=== PATIENT | female | born 1940 | race Caucasian/White ===

== ENCOUNTER 2017-03-03 10:04 | Inpatient (IN) | payer MEDICARE, MEDICAID ==
[2017-03-03 10:05] VITALS: BMI 22.2
--- NOTE | 2017-03-03 10:13 | ED PDOC ---
HPI: Altered Mental Status Time Seen by Provider: 03/03/17 10:08 Chief Complaint (Provider): altered mental status History Per: EMS History/Exam Limitations: Clinical Condition Onset Of Symptoms: Cannot Confirm Onset Current Symptoms Are (Timing): Still Present Additional Complaint(s): 77yo female w/ Hx CVA & known left side deficit, dementia, is brought from [facility] via EMS for change in mental status. Patient last known well >10 hours ago. EMS states RN who saw the patient at 0830 today told them patient was in her present state since change of shift. Accuchek in the field was 92. Past Medical History Reviewed: Historical Data, Nursing Documentation, Vital Signs Vital Signs: Last Vital Signs Temp 97.0 F L 03/03/17 10:07 Pulse 64 03/03/17 10:07 Resp 16 03/03/17 10:07 BP 200/100 H 03/03/17 10:07 Pulse Ox 99 03/03/17 10:07 - Medical History PMH: Alzheimer's Disease, Anemia, Anxiety, CAD, CVA (w/ left side deficit), Dementia, Depression, HTN, Osteoporosis, Pneumonia, Chronic Pain Denies: Arthritis, Asthma, CHF, COPD, Diabetes, Hepatitis, HIV, Hypercholesterolemia, Hypothyroidism, Chronic Kidney Disease, Rheumatoid Arthritis, Seizures, Sexually Transmitted Disease, TIA - Surgical History Surgical History: Appendectomy, Cholecystectomy Denies: Pacemaker - Family History Family History: States: Unknown Family Hx - Living Arrangements Living Arrangements: [facility] ([facility]) - Home Medications Home Medications: Ambulatory Orders Medication Instructions Recorded Acetaminophen [Tylenol 325mg tab] 650 mg PO Q4H PRN 03/25/16 Acetaminophen [Tylenol] 650 mg PO Q4H PRN 03/25/16 Bisacodyl [Fast Relief Laxative] 10 mg PA DAILY PRN 03/25/16 Magnesium Hydroxide [Milk Of 30 ml PO HS PRN 03/25/16 Magnesia] [place]urdland-3 Acid Ethyl Esters [Lovaza] 1 gm PO BID 03/25/16 Donepezil [Aricept] 5 mg PO HS 07/16/16 Ferrous Sulfate [Feosol] 325 mg PO DAILY 07/16/16 Aspirin [Aspirin Chewable] 81 mg PO DAILY 03/03/17 DiphenhydrAMINE [Benadryl] 25 mg PO Q6H PRN 03/03/17 Escitalopram [Lexapro] 2.5 mg PO DAILY 03/03/17 Ibuprofen [Motrin Tab] 400 mg PO Q6H PRN 03/03/17 Lactulose [Generlac] 30 ml PO BID 03/03/17 Metoprolol Tartrate [Lopressor] 25 mg PO DAILY 03/03/17 Pantoprazole Sodium [Protonix] 40 mg PO DAILY 03/03/17 levETIRAcetam [Keppra] 500 mg PO BID 03/03/17 - Allergies Allergies/Adverse Reactions: Allergies Allergy/AdvReac Type Severity Reaction Status Date / Time Cephalosporins Allergy Mild SWELLING Verified 07/16/16 13:15 Penicillins Allergy Mild SWELLING Verified 07/16/16 13:15 iodine Allergy SWELLING Verified 07/16/16 13:15 propoxyphene HCl Allergy SWELLING Verified 07/16/16 13:15 [From [facility]] Review of Systems Review Of Systems: ROS cannot be obtained secondary to pt's inabilty to answer questions. Neurological: Positive for: Altered Mental Status Physical Exam - Reviewed Nursing Documentation Reviewed: Yes Vital Signs Reviewed: Yes - Physical Exam Appears: Positive for: Non-toxic, No Acute Distress Head Exam: Positive for: ATRAUMATIC, NORMAL INSPECTION, NORMOCEPHALIC Skin: Positive for: Normal Color Eye Exam: Positive for: PERRL (3mm bilaterally) Cardiovascular/Chest: Positive for: Regular Rate, Rhythm. Negative for: Murmur Respiratory: Positive for: Crackles (scattered crackles at bilateral bases). Negative for: Wheezing, Respiratory Distress Gastrointestinal/Abdominal: Positive for: Soft. Negative for: Tenderness, Distended Extremity: Negative for: Calf Tenderness, Swelling Neurologic/Psych: Positive for: Other (obtunded, responsive to pain, withdraws to noxious stimulus. Normal babinski bilaterally. ) - Laboratory Results Result Diagrams: 03/03/17 10:39 03/03/17 10:39 - ECG ECG: Positive for: Interpreted By Me, Viewed By Me ECG Rhythm: Positive for: Sinus Rhythm Interpretation Of ECG: Normal axis. Rate: 73 O2 Sat by Pulse Oximetry: 99 (RA) Pulse Ox Interpretation: Normal Medical Decision Making Medical Decision Makin: Impression sepsis workup initiated. plan: -accuchek -CT Head w/o -CXR -EKG -vbg shock panel -labs -IV Fluids -reassess 1017 Blood pressure is 225/102. 12.00 patient's blood pressure is better. labs only for mildly elevated sodium. imaging studies negative. Case d/w PMD. Admit/ Disposition - Clinical Impression Clinical Impression: Altered mental state, Hypernatremia - Patient ED Disposition Is Patient to be Admitted: Yes Doctor Will See Patient In The: Hospital Counseled Patient/Family Regarding: Diagnosis, Need For Followup - Disposition Disposition: Transfer of Care Disposition Time: 12:06 Condition: GUARDED - POA Present On Arrival: None Additional Comments - Additional Comments Additional Comments: Scribe Attestation: Documented by Joey Denson acting as a scribe for Paula Banks MD. Provider Scribe Attestation: All medical record entries made by the Scribe were at my direction and personally dictated by me. I have reviewed the chart and agree that the record accurately reflects my personal performance of the history, physical exam, medical decision making, and the department course for this patient. I have also personally directed, reviewed, and agree with the discharge instructions and disposition.
[2017-03-03] MEDS ORDERED: Nitroglycerin 2% 15 INCH/30 GM TUBE TOP STA (10:33)
[2017-03-03] MEDS: Sodium Chloride 0.45% 1,000 ML IV SCH ×2 (11:06→20:00)
[2017-03-03 11:07] LABS: ALKALINE PHOSPHATASE 213 U/L (38-126); ALT/SGPT 27 U/L (9-52); AST/SGOT 66 U/L (14-36); BLOOD UREA NITROGEN 13 mg/dl (7-17); CALCIUM 8.8 mg/dL (8.4-10.2); CARBON DIOXIDE 21 mmol/L (22-30); CHLORIDE 115 mmol/L (98-107); GFR AFRICAN-AMERICAN > 60; GLUCOSE,RANDOM 97 mg/dL (65-105); SODIUM 148 mmol/l (132-148); TOTAL PROTEIN 7.3 G/DL (6.3-8.2)
[2017-03-03 11:15] LABS: BASO # 0.1 K/uL (0.0-0.2); BASO % 1.2 % (0.0-2.0); EOS # 0.4 K/uL (0.0-0.7); EOS % 9.6 % (0.0-4.0); MEAN CELL VOLUME 96.4 fl (81.0-99.0); MEAN CORPUSCULAR HEMOGLOBIN 32.8 pg (27.0-31.0); MEAN PLATELET VOLUME 9.4 fl (7.2-11.7); MONO # 0.4 K/uL (0.0-0.8); MONO % 10.4 % (0.0-10.0); NEUT # 1.3 K/uL (1.8-7.0); NEUT % 31.8 % (50.0-75.0); NRBC % 0.4 % (0.0-0.0); WHITE BLOOD COUNT 4.2 K/uL (4.8-10.8)
[2017-03-03 11:23] LABS: ALB/GLOB RATIO 0.7 (1.0-2.1)
[2017-03-03 11:24] LABS: POTASSIUM 4.7 MMOL/L (3.6-5.0)
--- NOTE | 2017-03-03 11:27 | CT ---
PROCEDURE: CT HEAD WITHOUT CONTRAST. HISTORY: lethargic at [place] COMPARISON: 07/18/2016 TECHNIQUE: Axial computed tomography images were obtained through the head/brain without intravenous contrast. Radiation dose: Total exam DLP = 1964.96 mGy-cm. This CT exam was performed using one or more of the following dose reduction techniques: Automated exposure control, adjustment of the mA and/or kV according to patient size, and/or use of iterative reconstruction technique. FINDINGS: HEMORRHAGE: No intracranial hemorrhage. BRAIN: No intracranial mass. Old focal left occipital encephalomalacia. No evidence of acute infarct. Patchy and confluent lucency in the periventricular and deep white matter consistent with microvascular ischemic change. Mild diffuse age-appropriate cerebral atrophy. VENTRICLES: Unremarkable. No hydrocephalus. CALVARIUM: Unremarkable. PARANASAL SINUSES: Unremarkable as visualized. No significant inflammatory changes. MASTOID AIR CELLS: Unremarkable as visualized. No inflammatory changes. OTHER FINDINGS: Examination limited due to patient motion artifact. IMPRESSION: No intracranial mass, hemorrhage or evidence of acute infarct. Examination limited due to patient motion. Chronic microvascular white matter ischemic change. Old focal left occipital encephalomalacia.
--- NOTE | 2017-03-03 11:58 | RAD ---
PROCEDURE: CHEST RADIOGRAPH, 1 VIEW HISTORY: lethargic at [place] COMPARISON: 12/18/2016 FINDINGS: LUNGS: Evaluation limited due to oblique positioning. PLEURA: No infiltrate identified. Small left pleural effusion versus chronic pleural thickening. . No evidence of right pleural effusion. CARDIOVASCULAR: Normal. OSSEOUS STRUCTURES: No significant abnormalities. VISUALIZED UPPER ABDOMEN: Normal. OTHER FINDINGS: None. IMPRESSION: Limited examination. No infiltrate. Possible small left pleural effusion.
[2017-03-03 12:02] LABS: URINE BILIRUBIN NEGATIVE (NEGATIVE); URINE COLOR LIGHT YELLOW (YELLOW); URINE GLUCOSE (UA) NEGATIVE (Normal)
[2017-03-03 12:03] LABS: PH,URINE 7.5 (5.0-8.0); RBC URINE 3 /hpf (0-3); URINE BACTERIA MOD (<OCC); URINE BLOOD NEGATIVE (NEGATIVE); URINE KETONE NEGATIVE (NEGATIVE); URINE LEUKOCYTE ESTERASE SMALL Leu/uL (Negative); URINE PROTEIN NEGATIVE (NEGATIVE); WBC URINE 10 /hpf (0-5)
[2017-03-03 14:27] LABS: PARTIAL THROMBOPLASTIN TIME 27.8 SECONDS (23.3-32.5)
[2017-03-03] MEDS ORDERED: EnalaprilAT 1.25 mg/ml Inj ONE (15:07)
[2017-03-03] MEDS ORDERED: Enalaprilat 2.5 MG/2 ML IVP STA (15:11)
[2017-03-03] MEDS ORDERED: EnalaprilAT 1.25 mg/ml Inj IVP STA (15:11)
[2017-03-03] MEDS ORDERED: Magnesium Hydroxide Susp 30 ml UD PO PRN (18:06)
[2017-03-04] MEDS: Sodium Chloride 0.45% 1,000 ML IV SCH ×2 (05:33→12:25)
[2017-03-04 07:20] LABS: BLOOD UREA NITROGEN 13 mg/dl (7-17); CALCIUM 8.8 mg/dL (8.4-10.2); CARBON DIOXIDE 22 mmol/L (22-30); CHLORIDE 110 mmol/L (98-107); CHOLESTEROL 116 mg/dL (0-199); GFR AFRICAN-AMERICAN > 60; GLUCOSE,RANDOM 85 mg/dL (65-105); POTASSIUM 3.4 MMOL/L (3.6-5.0); SODIUM 145 mmol/l (132-148)
[2017-03-04] MEDS ORDERED: Potassium Chloride 40 mEq/30 ml LIQ UD PO ONE (08:00)
--- NOTE | 2017-03-04 08:01 | CP.PCM.HP ---
<PetraPriscilla ferrera - Last Filed: 03/04/17 22:18> History of Present Illness - History of Present Illness History of Present Illness: CC: Altered Mental Status from baseline Patient was admitted overnight and then seen and examined at bedside with attending. At time of evaluation patient drowsy/lethargic and unable to obtain history from patient, so records reviewed. 77F brought in by EMS from [place] for acute change in mental status over 10 hours. Glucose- 92, afebrile, no tachycardia, no tachypnea, significant hypertension, no signs of sepsis. PMH: CVA (residual LEFT hemiparesis), Anemia, Cirrhosis, CAD, Alzheimer's Dementia, HTN PSH: Appendectomy, Cholecystectomy ED COURSE 36.1- 64- 200/100- 16- 99%RA Patient worked up for sepsis CT Head: consistent chronic changes, no ICH, no masses CXR: no infiltrate, possible small LEFT effusion EKG: NSR VBG: Lactate-1.4 CBC: 4.2 > 15/44 < 97, MCV- 96.4 CMP: 148/4.7- 115/21- 13/0.5, TBili- 2.0, AST/ALT- 66/27, ALP- 213 UA: Nitrates-POS, WBC+ IVF Present on Admission - Present on Admission Any Indicators Present on Admission: No History of DVT/PE: No History of Uncontrolled Diabetes: No Review of Systems - Review of Systems Systems not reviewed;Unavailable: Dementia, Altered Mental Status Past Patient History - Infectious Disease Hx of Infectious Diseases: None - Tetanus Immunizations Tetanus Immunization: Unknown - Past Medical History & Family History Past Medical History?: Yes - Past Social History Smoking Status: Smoker Currrent Status Unknown - CARDIAC Hx Congestive Heart Failure: No Hx Hypercholesterolemia: No Hx Hypertension: Yes Hx Pacemaker: No - PULMONARY Hx Asthma: No Hx Chronic Obstructive Pulmonary Disease (COPD): No Hx Pneumonia: Yes - NEUROLOGICAL Hx Alzheimer's Disease: Yes HX Cerebrovascular Accident: Yes Hx Dementia: Yes Hx Seizures: No Hx Transient Ischemic Attacks (TIA): No - HEENT Hx HEENT Problems: No - RENAL Hx Chronic Kidney Disease: No - ENDOCRINE/METABOLIC Hx Hypothyroidism: No - HEMATOLOGICAL/ONCOLOGICAL Hx Anemia: Yes Hx Human Immunodeficiency Virus (HIV): No - INTEGUMENTARY Hx Dermatological Problems: No - MUSCULOSKELETAL/RHEUMATOLOGICAL Hx Arthritis: No Hx Falls: No Hx Osteoporosis: Yes Hx Rheumatoid Arthritis: No - GASTROINTESTINAL Hx Gastrointestinal Disorders: Yes Hx Constipation: Yes Hx Gastroesophageal Reflux: Yes - GENITOURINARY/GYNECOLOGICAL Hx Sexually Transmitted Disorders: No - PSYCHIATRIC Hx Anxiety: Yes Hx Depression: Yes Hx Substance Use: No - SURGICAL HISTORY Hx Appendectomy: Yes Hx Cholecystectomy: Yes - ANESTHESIA Hx Anesthesia: Yes Hx Anesthesia Reactions: No Hx Malignant Hyperthermia: No Meds Allergies/Adverse Reactions: Allergies Allergy/AdvReac Type Severity Reaction Status Date / Time Cephalosporins Allergy Mild SWELLING Verified 07/16/16 13:15 Penicillins Allergy Mild SWELLING Verified 07/16/16 13:15 iodine Allergy SWELLING Verified 07/16/16 13:15 propoxyphene HCl Allergy SWELLING Verified 07/16/16 13:15 [From [facility]] Physical Exam - Constitutional Appears: Non-toxic, Chronically Ill - Head Exam Head Exam: ATRAUMATIC, NORMAL INSPECTION - Eye Exam Eye Exam: Normal appearance, PERRL - ENT Exam ENT Exam: Mucous Membranes Dry - Neck Exam Neck exam: Positive for: Normal Inspection. Negative for: Lymphadenopathy - Respiratory Exam Respiratory Exam: Clear to Auscultation Bilateral, NORMAL BREATHING PATTERN. absent: Rales, Wheezes - Cardiovascular Exam Cardiovascular Exam: REGULAR RHYTHM. absent: JVD - GI/Abdominal Exam GI & Abdominal Exam: Normal Bowel Sounds, Soft. absent: Tenderness - Extremities Exam Extremities exam: Positive for: normal capillary refill, pedal pulses present. Negative for: pedal edema Additional comments: LEFT Hemiparesis at baseline - Neurological Exam Neurological exam: Altered (Drowsy on initial exam, but alert later in the day) Additional comments: Patient has LEFT hemiparesis and speech aphasia? - Skin Skin Exam: Dry, Warm Results - Vital Signs Recent Vital Signs: Last Vital Signs Temp 36.5 C 03/04/17 05:15 Pulse 85 03/04/17 05:15 Resp 18 03/04/17 05:15 BP 171/75 H 03/04/17 05:15 Pulse Ox 97 03/04/17 05:15 - Labs Result Diagrams: 03/04/17 04:50 03/04/17 04:50 Labs: Laboratory Results - last 24 hr 03/03/17 03/04/17 14:19 04:50 PT 12.5 H INR 1.20 H APTT 27.8 Sodium 145 Potassium 3.4 L Chloride 110 H Carbon Dioxide 22 Anion Gap 16 BUN 13 Creatinine 0.5 L Est GFR ( Amer) > 60 Est GFR (Non-Af Amer) > 60 Random Glucose 85 Calcium 8.8 Triglycerides 60 Cholesterol 116 LDL Cholesterol Direct 54 HDL Cholesterol 35 Assessment & Plan (2) Altered mental state Assessment and Plan: 77F with baseline dementia and with volume resuscitation alone has become quite alert and responsive to baseline. Laboratory values have remained stable ( refer to discussion in cirrhosis for thrombocytopenia below), "possible small LEFT pleural effusion" unlikely a sign of infection, no ICH/masses on CT scan noted, UA is positive for nitrates but many epithelial cells in specimen, no leukocytosis, no lactic acidosis, no TEGAN. Given positive response to IV fluids alone would suspect potential medication interaction vs. metabolic abnormality such as ammonia, although cannot rule out infectious etiology (Positive BCx does not fit with overall clinical picture, will treat as accurate for patient safety but suspect possible contamination). Does not meet criteria for sepsis at this time. - Neurology Consult (Dr Serrato) appreciated: MRI, PT/OT/ST - ID Consult (Dr Jeter) appreciated: Vancomycin for positive BCx - Procalcitonin - Repeat BCx - Repeat CBC - Empirically treated with Macrobid (last UTI was sensitive) - HOLD Benadryl Status: Acute (3) DVT prophylaxis Assessment and Plan: Reviewing current literature on DVT prophylaxis in cirrhotics seem to hinge on presence or absence of esophageal varices for which we have no information. Otherwise no specific guidelines are provided, but suggest a platelet count of 50,000 is the threshold beyond which it is not recommended (Adry T, Seven A, R , Ruben J, Oniel S, Eliu C, Serge M, The Complex Role of Anticoagulation in Cirrhosis: An Updated Review of Where We Are and Where We Are Going. Digestion 2016;93:149-159). Platelet count- 77K - Lovenox 40mg, SC, Daily - SCDs b/l lower extremities, continuous Status: Acute (4) CVA (cerebral vascular accident) Assessment and Plan: Acute on chronic possibility with patient having baseline LEFT hemiparesis and speech ?aphasia combined with alzheimer's challenging to discriminate more subtle changes. - Neurology Consult (Dr Serrato) appreciated: MRI, PT/OT/ST - MRI - Aspirin 81mg, PO, Daily - Keppra 500mg, PO, BID Status: Acute (5) Alzheimer's dementia Assessment and Plan: Stable, as per family at bedside patient at baseline. - c/w Aricept 5mg, PO, HS - Lexapro 2.5mg, PO, Daily Status: Chronic (6) Hypertension Assessment and Plan: On presentation not controlled and in hypertensive urgency, but since has stabilized although lower than recommended if we suspect this is conjunction with an cerebral ischemic event. - Lopressor Tartrate 25mg, PO, Daily - Monitor BP Status: Chronic (7) Cirrhosis of liver Assessment and Plan: Prior workup for thrombocytopenia by Dr Tabares indicates thrombocytopenia and coagulopathy secondary to liver cirrhosis. Admission MELD-Ar: 11 - Check Ammonia levels - Repeat CMP - Lactulose 20gm, PO, BID Status: Acute <Alfonso Brar - Last Filed: 03/11/17 17:54> Results - Vital Signs Recent Vital Signs: Last Vital Signs Temp 97.6 F 03/09/17 16:00 Pulse 64 03/09/17 16:00 Resp 20 03/09/17 16:00 BP 108/58 L 03/09/17 16:00 Pulse Ox 99 03/09/17 16:00 - Labs Result Diagrams: 03/08/17 05:50 03/08/17 05:50
--- NOTE | 2017-03-04 08:28 | CARD ---
APPROVED REPORT EKG Measurement Heart [id number] <Conclusion> Normal sinus rhythm Normal ECG
[2017-03-04 08:48] LABS: ABG ALLEN TEST YES; ARTERIAL BLOOD GAS HCO3 24.7 mmol/L (21-28); ARTERIAL BLOOD GAS PH 7.46 (7.35-7.45); ARTERIAL BLOOD GAS PO2 105 mm/Hg (80-100)
[2017-03-04 09:02] LABS: HEMATOCRIT 41.8 % (34.0-47.0); MEAN CELL VOLUME 97.6 fl (81.0-99.0); MEAN CORPUSCULAR HEMOGLOBIN 32.5 pg (27.0-31.0); MEAN CORPUSCULAR HGB CONC 33.3 g/dL (33.0-37.0); WHITE BLOOD COUNT 5.2 K/uL (4.8-10.8)
[2017-03-04] MEDS ORDERED: Potassium Chloride 20 mEq/15 ml LIQ UD PO ONE (09:15)
[2017-03-04] MEDS: Pantoprazole 40 mg EC Tab PO SCH (10:14)
[2017-03-04] MEDS: Enoxaparin 40 mg Syringe SC SCH (10:15)
[2017-03-04] MEDS: Omega-3-Acid Ethyl Esters 1 GM Cap PO SCH ×2 (10:16→17:39)
[2017-03-04] MEDS: Ciprofloxacin 400mg/200ml D5W 400 MG/200 ML BAG IVPB SCH ×2 (12:24→21:59)
--- NOTE | 2017-03-04 18:45 | CP.PCM.CON ---
History of Present Illness - History of Present Illness History of Present Illness: ADMITTED FOR POSSIBLE SEPSIS BLOOD C/S POSITIVE VANCO ADDED 77F brought in by EMS from [place] for acute change in mental status over 10 hours. Glucose- 92, afebrile, no tachycardia, no tachypnea, significant hypertension, no signs of sepsis. PMH: CVA (residual LEFT hemiparesis), Anemia, Cirrhosis, CAD, Alzheimer's Dementia, HTN PSH: Appendectomy, Cholecystectomy Review of Systems - Review of Systems Systems not reviewed;Unavailable: Altered Mental Status - Constitutional Constitutional: absent: As Per HPI, Anorexia, Chills, Daytime Sleepiness, Excessive Sweating, Fatigue, Fever, Frequent Falls, Headache, Increased Appetite , Lethargy, Malaise, Night Sweats, Snoring, Sleep Apnea, Weight Gain, Weight Loss, Weakness, Other - EENT Eyes: absent: As Per HPI, Blind Spots, Blurred Vision, Change in Vision, Decreased Night Vision, Diplopia, Discharge, Dry Eye, Exophthalmos, Floaters, Irritation, Itchy Eyes, Loss of Peripheral Vision, Pain, Photophobia, Requires Corrective Lenses, Sees Flashes, Spots in Vision, Tunnel Vision, Other Visual Disturbances, Loss of Vision, Other Ears: absent: As Per HPI, Decreased Hearing, Ear Discharge, Ear Pain, Tinnitus, Abnormal Hearing, Disequilibrium, Dizziness, Other Nose/Mouth/Throat: absent: As Per HPI, Epistaxis, Nasal Congestion, Nasal Discharge, Nasal Obstruction, Nasal Trauma, Nose Pain, Post Nasal Drip, Sinus Pain, Sinus Pressure, Bleeding Gums, Change in Voice, Dental Pain, Dry Mouth, Dysphagia, Halitosis, Hoarsness, Lip Swelling, Mouth Lesions, Mouth Pain, Odynophagia, Sore Throat, Throat Swelling, Tongue Swelling, Facial Pain, Neck Pain, Neck Mass, Other - Breasts Breasts: absent: As Per HPI, Change in Shape, Mass, Pain, Nipple Discharge, Nipple Inversion, Skin Changes, Swelling, Other - Cardiovascular Cardiovascular: absent: As Per HPI, Acrocyanosis, Chest Pain, Chest Pain at Rest , Chest Pain with Activity, Claudication, Diaphoresis, Dyspnea, Dyspnea on Exertion, Edema, Irregular Heart Rhythm, Pain Radiating to Arm/Neck/Jaw, Leg Edema, Leg Ulcers, Lightheadedness, Orthopnea, Palpitations, Paroxysmal Nocturnal Dyspnea, Pedal Edema, Radiating Pain, Rapid Heart Rate, Slow Heart Rate, Syncope, Other - Respiratory Respiratory: absent: As Per HPI, Cough, Dyspnea, Hemoptysis, Dyspnea on Exertion , Wheezing, Snoring, Stridor, Pain on Inspiration, Chest Congestion, Excessive Mucous Production, Change in Mucous Color, Pain with Coughing, Other - Gastrointestinal Gastrointestinal: absent: As Per HPI, Abdominal Pain, Belching, Bloating, Change in Bowel Habits, Change in Stool Character, Coffee Ground Emesis, Constipation, Cramping, Diarrhea, Dyspepsia, Dysphagia, Early Satiety, Excessive Flatus, Fecal Incontinence, Heartburn, Hematemesis, Hematochezia, Loose Stools, Melena, Nausea, Odynophagia, Temesmus, Vomiting, Other - Genitourinary Genitourinary: absent: As Per HPI, Change in Urinary Stream, Difficulty Urinating, Dysuria, Flank Pain, Hematuria, Pyuria, Nocturia, Urinary Incontinence, Urinary Frequency, Urinary Hesitance, Urinary Urgency, Voiding Freq/Small Amts, Freq UTI, Hx Renal/Bladder Calculi, Hx /Renal Surgery, Bladder Distension, Other - Reproductive: Female Reproductive:Female: absent: As Per HPI, Amenorrhea, Amenorrhea/ Control, Currently Menstual, Cycle <21 Days, Cycle >35 Days, Cycle Variable, Menses 1-7 Days, Menses >/= 8 Days, Menses Variable, Cycle > 4 Weeks Between, No Menses for 6 Months, Heavy Menses, Light Menses, Normal Menses, Spotting Between Cycles , S/P Hysterectomy, Menopausal, Post Menopausal, Premenarche, Abnormal Vaginal Bleeding, Dysmenorrhea, Dyspareunia, Genital Lesions, Genital Pruritis, Pelvic Pain, Prolapse Symptoms, Sexual Dysfunction, Vaginal Discharge, Vaginal Dryness , Vaginal Odor, Vaginal Pruritis, Other - Menstruation Menstruation: absent: As Per HPI, Amenorrhea, Amenorrhea/ Control, Currently Menstual, Cycle <21 Days, Cycle >35 Days, Cycle Variable, Menses 1-7 Days, Menses >/= 8 Days, Menses Variable, Cycle > 4 Weeks Between, No Menses for 6 Months, Heavy Menses, Light Menses, Normal Menses, Spotting Between Cycles , S/P Hysterectomy, Menopausal, Post Menopausal, Premenarche, Abnormal Vaginal Bleeding, Dysmenorrhea, Other - Musculoskeletal Musculoskeletal: absent: As Per HPI, Abnormal Gait, Arthralgias, Atrophy, Back Pain, Deformity, Joint Swelling, Limited Range of Motion, Loss of Height, Muscle Cramps, Muscle Weakness, Myalgias, Neck Pain, Numbness, Radiating Pain into Limb, Stiffness, Tingling, Other - Integumentary Integumentary: absent: As Per HPI, Acne, Alopecia, Bleeding Lesions, Change in Hair, Change in Nails, Change in Pigmentation, Changing Lesions, Dry Skin, Erythema, Furuncle, Hirsutism, Lesions, New Lesions, Non-Healing Lesions, Photosensitivity, Pruritus, Rash, Skin Pain, Skin Ulcer, Sores, Striae, Swelling , Unusual Bruising, Wounds, Jaundice, Other - Neurological Neurological: absent: As Per HPI, Abnormal Gait, Abnormal Hearing, Abnormal Movements, Abnormal Speech, Behavioral Changes, Burning Sensations, Confusion, Convulsions, Disequilibrium, Dizziness, Numbness, Focal Weakness, Frequent Falls , Headaches, Lack of Coordination, Loss of Vision, Memory Loss, Paresthesias, Radicular Pain, Restless Legs, Sensory Deficit, Syncope, Tingling, Tremor, Vertigo, Weakness, Other Visual Disturbances, Other - Psychiatric Psychiatric: absent: As Per HPI, Abnormal Sleep Pattern, Anhedonia, Anxiety, Auditory Hallucinations, Behavioral Changes, Change in Appetite, Change in Libido, Confusion, Depression, Difficulty Concentrating, Hallucinations, Homicidal Ideation, Hopelessness, Irritability, Memory Loss, Mood Swings, Panic Attacks, Paranoia, Suicidal Ideation, Visual Hallucinations, Tactile Hallucinations, Other - Endocrine Endocrine: absent: As Per HPI, Change in Body Appearance, Change in Libido, Cold Intolorance, Deepening of Voice, Excessive Sweating, Fatigue, Flushing, Heat Intolorance, Increase in Ring/Shoe/Hat Size, Palpitations, Polydipsia, Polyphagia, Polyuria, Other - Hematologic/Lymphatic Hematologic: absent: As Per HPI, Easy Bleeding, Easy Bruising, Lymphadenopathy, Other Past Patient History - Infectious Disease Hx of Infectious Diseases: None - Tetanus Immunizations Tetanus Immunization: Unknown - Past Medical History & Family History Past Medical History?: Yes - Past Social History Smoking Status: Smoker Currrent Status Unknown - CARDIAC Hx Congestive Heart Failure: No Hx Hypercholesterolemia: No Hx Hypertension: Yes Hx Pacemaker: No - PULMONARY Hx Asthma: No Hx Chronic Obstructive Pulmonary Disease (COPD): No Hx Pneumonia: Yes - NEUROLOGICAL Hx Alzheimer's Disease: Yes HX Cerebrovascular Accident: Yes Hx Dementia: Yes Hx Seizures: No Hx Transient Ischemic Attacks (TIA): No - HEENT Hx HEENT Problems: No - RENAL Hx Chronic Kidney Disease: No - ENDOCRINE/METABOLIC Hx Hypothyroidism: No - HEMATOLOGICAL/ONCOLOGICAL Hx Anemia: Yes Hx Human Immunodeficiency Virus (HIV): No - INTEGUMENTARY Hx Dermatological Problems: No - MUSCULOSKELETAL/RHEUMATOLOGICAL Hx Arthritis: No Hx Falls: No Hx Osteoporosis: Yes Hx Rheumatoid Arthritis: No - GASTROINTESTINAL Hx Gastrointestinal Disorders: Yes Hx Constipation: Yes Hx Gastroesophageal Reflux: Yes - GENITOURINARY/GYNECOLOGICAL Hx Sexually Transmitted Disorders: No - PSYCHIATRIC Hx Anxiety: Yes Hx Depression: Yes Hx Substance Use: No - SURGICAL HISTORY Hx Appendectomy: Yes Hx Cholecystectomy: Yes - ANESTHESIA Hx Anesthesia: Yes Hx Anesthesia Reactions: No Hx Malignant Hyperthermia: No Meds Allergies/Adverse Reactions: Allergies Allergy/AdvReac Type Severity Reaction Status Date / Time Cephalosporins Allergy Mild SWELLING Verified 07/16/16 13:15 Penicillins Allergy Mild SWELLING Verified 07/16/16 13:15 iodine Allergy SWELLING Verified 07/16/16 13:15 propoxyphene HCl Allergy SWELLING Verified 07/16/16 13:15 [From Darvon] - Medications Medications: Current Medications Acetaminophen (Tylenol 325mg Tab) 650 mg PO Q4H PRN PRN Reason: Pain, Mild (1-3) Acetaminophen (Tylenol 325mg Tab) 650 mg PO Q4H PRN PRN Reason: Temp/fever Aspirin (Aspirin Chewable) 81 mg PO DAILY [facility] Last Admin: 03/04/17 10:13 Dose: 81 mg Bisacodyl (Dulcolax) 10 mg [place] DAILY PRN PRN Reason: Constipation Diphenhydramine HCl (Benadryl) 25 mg PO Q6H PRN PRN Reason: Itching / Pruritus Donepezil HCl (Aricept) 5 mg PO HS [facility] Last Admin: 03/03/17 22:12 Dose: 5 mg Enoxaparin Sodium (Lovenox) 40 mg SC DAILY [facility] PRN Reason: Protocol Last Admin: 03/04/17 10:15 Dose: 40 mg Escitalopram Oxalate (Lexapro) 2.5 mg PO DAILY [facility] Last Admin: 03/04/17 10:18 Dose: 2.5 mg Ferrous Sulfate (Feosol) 325 mg PO DAILY [facility] Last Admin: 03/04/17 10:14 Dose: 325 mg Sodium Chloride (Sodium Chloride 0.45%) 1,000 mls @ 125 mls/hr IV .Q8H [facility] Last Admin: 03/04/17 12:25 Dose: Not Given Ciprofloxacin (Cipro 400mg/200ml Dsw) 400 mg in 200 mls @ 200 mls/hr IVPB Q12 [facility] Last Admin: 03/04/17 12:24 Dose: Not Given Vancomycin HCl 1,000 mg/ (Sodium Chloride) 250 mls @ 250 mls/hr IVPB Q12H [facility] Ibuprofen (Motrin Tab) 400 mg PO Q6H PRN PRN Reason: Pain, moderate (4-7) Lactulose (Enulose) 20 gm PO BID [facility] Last Admin: 03/04/17 17:39 Dose: 20 gm Levetiracetam (Keppra) 500 mg PO BID [facility] Last Admin: 03/04/17 17:40 Dose: 500 mg Magnesium Hydroxide (Milk Of Magnesia) 30 ml PO HS PRN PRN Reason: Constipation Metoprolol Tartrate (Lopressor) 25 mg PO DAILY [facility] Last Admin: 03/04/17 10:17 Dose: 25 mg Nitrofurantoin Macrocrystals (Macrobid) 100 mg PO Q12 [facility] Last Admin: 03/04/17 14:52 Dose: 100 mg Wlarg-1-Izao Ethyl Esters (Lovaza) 1 gm PO BID [facility] Last Admin: 03/04/17 17:39 Dose: 1 gm Pantoprazole Sodium (Protonix Ec Tab) 40 mg PO DAILY [facility] Last Admin: 03/04/17 10:14 Dose: 40 mg Physical Exam - Constitutional Appears: Non-toxic, Cachectic, Chronically Ill - Head Exam Head Exam: ATRAUMATIC, NORMAL INSPECTION, NORMOCEPHALIC - Eye Exam Eye Exam: EOMI, PERRL. absent: Scleral icterus - ENT Exam ENT Exam: Mucous Membranes Dry, Normal External Ear Exam - Neck Exam Neck exam: Negative for: Lymphadenopathy, Thyromegaly - Respiratory Exam Respiratory Exam: Decreased Breath Sounds, Rhonchi - Cardiovascular Exam Cardiovascular Exam: Tachycardia, REGULAR RHYTHM, +S1, +S2 - GI/Abdominal Exam GI & Abdominal Exam: Diminished Bowel Sounds, Distended, Soft. absent: Organomegaly, Pulsatile Mass, Rebound, Rigid, Tenderness - Rectal Exam Rectal Exam: Deferred - Exam Exam: NORMAL INSPECTION - Extremities Exam Extremities exam: Positive for: pedal pulses present. Negative for: calf tenderness, pedal edema, tenderness - Back Exam Back exam: absent: CVA tenderness (L), CVA tenderness (R), paraspinal tenderness - Neurological Exam Neurological exam: Alert, Altered, CN II-XII Intact - Psychiatric Exam Psychiatric exam: Depressed - Skin Skin Exam: Dry, Intact Results - Vital Signs Recent Vital Signs: Last Vital Signs Temp 98.5 F 03/04/17 16:48 Pulse 82 03/04/17 16:48 Resp 20 03/04/17 16:48 BP 133/73 03/04/17 16:48 Pulse Ox 98 03/04/17 16:48 - Labs Result Diagrams: 03/05/17 05:30 03/05/17 05:30 Labs: Laboratory Results - last 24 hr 03/04/17 03/04/17 04:50 04:50 WBC 5.2 RBC 4.28 Hgb 13.9 Hct 41.8 MCV 97.6 MCH 32.5 H MCHC 33.3 RDW 14.0 Plt Count 77 L D Sodium 145 Potassium 3.4 L Chloride 110 H Carbon Dioxide 22 Anion Gap 16 BUN 13 Creatinine 0.5 L Est GFR ( Amer) > 60 Est GFR (Non-Af Amer) > 60 Random Glucose 85 Calcium 8.8 Triglycerides 60 Cholesterol 116 LDL Cholesterol Direct 54 HDL Cholesterol 35 Assessment & Plan (1) Bacteremia Status: Acute (2) Bacteremia Status: Acute (3) Altered mental state Status: Acute (4) Encephalopathy acute Status: Acute Priority: High (5) Hypernatremia Status: Acute (6) UTI (urinary tract infection) Status: Acute (7) Alzheimer's dementia Status: Chronic (8) Hypertension Status: Chronic - Assessment and Plan (Free Text) Assessment: gram + cocci on blood c/s contaminant? pt is toxic will cover with Oral
--- NOTE | 2017-03-04 18:49 | CP.PCM.CON ---
History of Present Illness - History of Present Illness History of Present Illness: Mrs. Hill is a 77-year-old woman with a past medical history of dementia, CVA ( residual left side weakness), HTN, CAD, who was [facility] for changes in her mental status and confusion. She is unable to provide a history and continues to say "hello" when I ask her any questions. The information was obtained form the chart. Review of Systems - Review of Systems Systems not reviewed;Unavailable: Dementia, Altered Mental Status Past Patient History - Infectious Disease Hx of Infectious Diseases: None - Tetanus Immunizations Tetanus Immunization: Unknown - Past Medical History & Family History Past Medical History?: Yes - Past Social History Smoking Status: Smoker Currrent Status Unknown - CARDIAC Hx Congestive Heart Failure: No Hx Hypercholesterolemia: No Hx Hypertension: Yes Hx Pacemaker: No - PULMONARY Hx Asthma: No Hx Chronic Obstructive Pulmonary Disease (COPD): No Hx Pneumonia: Yes - NEUROLOGICAL Hx Alzheimer's Disease: Yes HX Cerebrovascular Accident: Yes Hx Dementia: Yes Hx Seizures: No Hx Transient Ischemic Attacks (TIA): No - HEENT Hx HEENT Problems: No - RENAL Hx Chronic Kidney Disease: No - ENDOCRINE/METABOLIC Hx Hypothyroidism: No - HEMATOLOGICAL/ONCOLOGICAL Hx Anemia: Yes Hx Human Immunodeficiency Virus (HIV): No - INTEGUMENTARY Hx Dermatological Problems: No - MUSCULOSKELETAL/RHEUMATOLOGICAL Hx Arthritis: No Hx Falls: No Hx Osteoporosis: Yes Hx Rheumatoid Arthritis: No - GASTROINTESTINAL Hx Gastrointestinal Disorders: Yes Hx Constipation: Yes Hx Gastroesophageal Reflux: Yes - GENITOURINARY/GYNECOLOGICAL Hx Sexually Transmitted Disorders: No - PSYCHIATRIC Hx Anxiety: Yes Hx Depression: Yes Hx Substance Use: No - SURGICAL HISTORY Hx Appendectomy: Yes Hx Cholecystectomy: Yes - ANESTHESIA Hx Anesthesia: Yes Hx Anesthesia Reactions: No Hx Malignant Hyperthermia: No Meds Allergies/Adverse Reactions: Allergies Allergy/AdvReac Type Severity Reaction Status Date / Time Cephalosporins Allergy Mild SWELLING Verified 07/16/16 13:15 Penicillins Allergy Mild SWELLING Verified 07/16/16 13:15 iodine Allergy SWELLING Verified 07/16/16 13:15 propoxyphene HCl Allergy SWELLING Verified 07/16/16 13:15 [From Darvon] - Medications Medications: Current Medications Acetaminophen (Tylenol 325mg Tab) 650 mg PO Q4H PRN PRN Reason: Pain, Mild (1-3) Acetaminophen (Tylenol 325mg Tab) 650 mg PO Q4H PRN PRN Reason: Temp/fever Aspirin (Aspirin Chewable) 81 mg PO DAILY [facility] Last Admin: 03/04/17 10:13 Dose: 81 mg Bisacodyl (Dulcolax) 10 mg [place] DAILY PRN PRN Reason: Constipation Diphenhydramine HCl (Benadryl) 25 mg PO Q6H PRN PRN Reason: Itching / Pruritus Donepezil HCl (Aricept) 5 mg PO HS [facility] Last Admin: 03/03/17 22:12 Dose: 5 mg Enoxaparin Sodium (Lovenox) 40 mg SC DAILY [facility] PRN Reason: Protocol Last Admin: 03/04/17 10:15 Dose: 40 mg Escitalopram Oxalate (Lexapro) 2.5 mg PO DAILY [facility] Last Admin: 03/04/17 10:18 Dose: 2.5 mg Ferrous Sulfate (Feosol) 325 mg PO DAILY [facility] Last Admin: 03/04/17 10:14 Dose: 325 mg Sodium Chloride (Sodium Chloride 0.45%) 1,000 mls @ 125 mls/hr IV .Q8H [facility] Last Admin: 03/04/17 12:25 Dose: Not Given Ciprofloxacin (Cipro 400mg/200ml Dsw) 400 mg in 200 mls @ 200 mls/hr IVPB Q12 [facility] Last Admin: 03/04/17 12:24 Dose: Not Given Vancomycin HCl 1 gm/ Sodium (Chloride) 250 mls @ 250 mls/hr IVPB Q12H [facility] Ibuprofen (Motrin Tab) 400 mg PO Q6H PRN PRN Reason: Pain, moderate (4-7) Lactulose (Enulose) 20 gm PO BID [facility] Last Admin: 03/04/17 17:39 Dose: 20 gm Levetiracetam (Keppra) 500 mg PO BID [facility] Last Admin: 03/04/17 17:40 Dose: 500 mg Magnesium Hydroxide (Milk Of Magnesia) 30 ml PO HS PRN PRN Reason: Constipation Metoprolol Tartrate (Lopressor) 25 mg PO DAILY [facility] Last Admin: 03/04/17 10:17 Dose: 25 mg Nitrofurantoin Macrocrystals (Macrobid) 100 mg PO Q12 [facility] Last Admin: 03/04/17 14:52 Dose: 100 mg Xroyt-2-[id number] Ethyl Esters (Lovaza) 1 gm PO BID [facility] Last Admin: 03/04/17 17:39 Dose: 1 gm Pantoprazole Sodium (Protonix Ec Tab) 40 mg PO DAILY [facility] Last Admin: 03/04/17 10:14 Dose: 40 mg Physical Exam - Constitutional Appears: Toxic, Confused - Head Exam Head Exam: ATRAUMATIC, NORMAL INSPECTION, NORMOCEPHALIC - Eye Exam Eye Exam: EOMI, Normal appearance, PERRL - ENT Exam ENT Exam: Mucous Membranes Moist, Normal Exam - Neck Exam Neck exam: Positive for: Normal Inspection - Respiratory Exam Respiratory Exam: Clear to Auscultation Bilateral, NORMAL BREATHING PATTERN - Cardiovascular Exam Cardiovascular Exam: REGULAR RHYTHM - GI/Abdominal Exam GI & Abdominal Exam: Normal Bowel Sounds, Soft. absent: Tenderness - Neurological Exam Neurological exam: Altered, CN II-XII Intact Additional comments: left side hemiplegia, withdraws to pain on the right, upgoing plantar response on the left, does not follow commands to test strength. - Psychiatric Exam Additional comments: aphasic Results - Vital Signs Recent Vital Signs: Last Vital Signs Temp 98.5 F 03/04/17 16:48 Pulse 82 03/04/17 16:48 Resp 20 03/04/17 16:48 BP 133/73 03/04/17 16:48 Pulse Ox 98 03/04/17 16:48 - Labs Result Diagrams: 03/04/17 04:50 03/04/17 04:50 Labs: Laboratory Results - last 24 hr 03/04/17 03/04/17 04:50 04:50 WBC 5.2 RBC 4.28 Hgb 13.9 Hct 41.8 MCV 97.6 MCH 32.5 H MCHC 33.3 RDW 14.0 Plt Count 77 L D Sodium 145 Potassium 3.4 L Chloride 110 H Carbon Dioxide 22 Anion Gap 16 BUN 13 Creatinine 0.5 L Est GFR ( Amer) > 60 Est GFR (Non-Af Amer) > 60 Random Glucose 85 Calcium 8.8 Triglycerides 60 Cholesterol 116 LDL Cholesterol Direct 54 HDL Cholesterol 35 - Imaging and Cardiology CT scan - head Status: Image reviewed by me, Report reviewed by me (No acute findings. ) Assessment & Plan (1) Encephalopathy acute Assessment and Plan: Based on the history and presentation, the patient may have either suffered from a new infarct, or has toxic-metabolic encephalopathy. An MRI of the brain is recommended and continue treatment for underlying cause, hydration with NS at 100 mL/hr, DVT Px, PT/OT/ST. Platelets are low, but would continue aspirin 81 mg for stroke prevention. Status: Acute Priority: High
--- NOTE | 2017-03-05 06:51 | CP.PCM.PN ---
Subjective - Date & Time of Evaluation Date of Evaluation: 03/05/17 Time of Evaluation: 06:51 - Subjective Subjective: F/U altered mental status 77F seen and examined at bedside this morning with attending. Patient easily arouseable, is verbal but answers not related to question. Unable to further asses level of alteration in mental status, but my attending knows the patient and thinks this is within her normal range. Objective - Vital Signs/Intake and Output Vital Signs (last 24 hours): Temp Pulse Resp BP Pulse Ox 36.9 C 85 18 121/63 98 03/05/17 05:27 03/05/17 05:27 03/05/17 05:27 03/05/17 05:27 03/05/17 05:27 Intake and Output: 03/04/17 03/05/17 18:59 06:59 Intake Total 360 Output Total 340 Balance 20 - Medications Medications: Current Medications Acetaminophen (Tylenol 325mg Tab) 650 mg PO Q4H PRN PRN Reason: Pain, Mild (1-3) Acetaminophen (Tylenol 325mg Tab) 650 mg PO Q4H PRN PRN Reason: Temp/fever Aspirin (Aspirin Chewable) 81 mg PO DAILY [facility] Last Admin: 03/04/17 10:13 Dose: 81 mg Bisacodyl (Dulcolax) 10 mg [place] DAILY PRN PRN Reason: Constipation Diphenhydramine HCl (Benadryl) 25 mg PO Q6H PRN PRN Reason: Itching / Pruritus Donepezil HCl (Aricept) 5 mg PO HS [facility] Last Admin: 03/04/17 21:52 Dose: 5 mg Enoxaparin Sodium (Lovenox) 40 mg SC DAILY [facility] PRN Reason: Protocol Last Admin: 03/04/17 10:15 Dose: 40 mg Escitalopram Oxalate (Lexapro) 2.5 mg PO DAILY [facility] Last Admin: 03/04/17 10:18 Dose: 2.5 mg Ferrous Sulfate (Feosol) 325 mg PO DAILY [facility] Last Admin: 03/04/17 10:14 Dose: 325 mg Sodium Chloride (Sodium Chloride 0.45%) 1,000 mls @ 125 mls/hr IV .Q8H [facility] Last Admin: 03/04/17 12:25 Dose: Not Given Vancomycin HCl 1 gm/ Sodium (Chloride) 250 mls @ 250 mls/hr IVPB Q12H [facility] Last Admin: 03/04/17 21:58 Dose: Not Given Ibuprofen (Motrin Tab) 400 mg PO Q6H PRN PRN Reason: Pain, moderate (4-7) Lactulose (Enulose) 20 gm PO BID [facility] Last Admin: 03/04/17 17:39 Dose: 20 gm Levetiracetam (Keppra) 500 mg PO BID [facility] Last Admin: 03/04/17 17:40 Dose: 500 mg Linezolid (Zyvox) 600 mg PO Q12 [facility] Last Admin: 03/04/17 22:53 Dose: 600 mg Magnesium Hydroxide (Milk Of Magnesia) 30 ml PO HS PRN PRN Reason: Constipation Metoprolol Tartrate (Lopressor) 25 mg PO DAILY [facility] Last Admin: 03/04/17 10:17 Dose: 25 mg Nitrofurantoin Macrocrystals (Macrobid) 100 mg PO Q12 [facility] Last Admin: 03/04/17 21:53 Dose: 100 mg Zighh-7-Uaxo Ethyl Esters (Lovaza) 1 gm PO BID [facility] Last Admin: 03/04/17 17:39 Dose: 1 gm Pantoprazole Sodium (Protonix Ec Tab) 40 mg PO DAILY [facility] Last Admin: 03/04/17 10:14 Dose: 40 mg - Labs Labs: 03/04/17 04:50 03/04/17 04:50 PT 12.5 SECONDS (9.6-11.2) H 03/03/17 14:19 INR 1.20 (0.92-1.08) H 03/03/17 14:19 APTT 27.8 SECONDS (23.3-32.5) 03/03/17 14:19 - Constitutional Appears: Non-toxic, No Acute Distress, Chronically Ill - Head Exam Head Exam: ATRAUMATIC, NORMAL INSPECTION - Eye Exam Eye Exam: PERRL - ENT Exam ENT Exam: Mucous Membranes Moist, Normal Exam - Neck Exam Neck Exam: Normal Inspection - Respiratory Exam Respiratory Exam: Clear to Ausculation Bilateral, NORMAL BREATHING PATTERN. absent: Rales, Wheezes - Cardiovascular Exam Cardiovascular Exam: REGULAR RHYTHM. absent: JVD - GI/Abdominal Exam GI & Abdominal Exam: Soft, Normal Bowel Sounds. absent: Tenderness - Extremities Exam Extremities Exam: Normal Capillary Refill. absent: Pedal Edema - Neurological Exam Neurological Exam: Awake Additional comments: Patient has LEFT hemiparesis and speech aphasia? - Skin Skin Exam: Dry, Warm Assessment and Plan (1) UTI (urinary tract infection) Assessment & Plan: Utine culture on admission positive. - UCx: e. coli sensitive to Macrobid 100mg, PO, Q12H for 5 days Status: Acute (2) Altered mental state Assessment & Plan: Patient within her range of baseline dementia secondary to CVA and Alzheimer' s. Of note, the Ammonia- 85. Awaiting repeat BCx, Procalcitonin, and again no leukocytosis or left shift present - Neurology Consult (Dr Serrato) appreciated: MRI-PENDING - ID Consult (Dr Jeter) appreciated: agrees likely contaminant - Procalcitonin- PEND - Repeat BCx- PEND - UCx: e. coli sensitive to Macrobid 100mg, PO, Q12H started on - HOLD Benadryl Status: Acute (3) DVT prophylaxis Assessment & Plan: Reviewing current literature on DVT prophylaxis in cirrhotics seem to hinge on presence or absence of esophageal varices for which we have no information. Otherwise no specific guidelines are provided, but suggest a platelet count of 50,000 is the threshold beyond which it is not recommended (Adry T, Seven Barba, R , Ruben J, Oniel S, Eliu C, Serge M, The Complex Role of Anticoagulation in Cirrhosis: An Updated Review of Where We Are and Where We Are Going. Digestion 2016;93:149-159). Platelet count- 83K - Lovenox 40mg, SC, Daily - SCDs b/l lower extremities, continuous Status: Acute (4) CVA (cerebral vascular accident) Assessment & Plan: Acute on chronic is a possibility with patient having baseline LEFT hemiparesis and speech ?aphasia combined with alzheimer's challenging to discriminate more subtle changes. - Neurology Consult (Dr Serrato) appreciated: MRI, PT/OT/ST - MRI- PENDING - Aspirin 81mg, PO, Daily - Keppra 500mg, PO, BID Status: Acute (5) Alzheimer's dementia Assessment & Plan: As per family at bedside patient at baseline. - c/w Aricept 5mg, PO, HS - Lexapro 2.5mg, PO, Daily Status: Chronic (6) Hypertension Assessment & Plan: On presentation not controlled and in hypertensive urgency, but since has stabilized although lower than recommended if we suspect this is in conjunction with a cerebral ischemic event. - Lopressor Tartrate 25mg, PO, Daily - Monitor BP Status: Chronic (7) Cirrhosis of liver Assessment & Plan: Prior workup for thrombocytopenia by Dr Tabares indicates thrombocytopenia and coagulopathy secondary to liver cirrhosis. Admission MELD-Ar: 11. Ammonia- 85 will need to increase lactulose and titrate to 3 BMs/day - Repeat Ammonia level 03/06 - Repeat CMP - Lactulose 20gm, PO, BID Status: Acute
[2017-03-05 07:07] LABS: BASO % 0.7 % (0.0-2.0); EOS # 0.3 K/uL (0.0-0.7); EOS % 5.5 % (0.0-4.0); HEMATOCRIT 37.7 % (34.0-47.0); LYMPH # 2.3 K/uL (1.0-4.3); LYMPH % 39.8 % (20.0-40.0); MEAN CELL VOLUME 96.1 fl (81.0-99.0); MEAN CORPUSCULAR HEMOGLOBIN 32.5 pg (27.0-31.0); MEAN CORPUSCULAR HGB CONC 33.8 g/dL (33.0-37.0); MEAN PLATELET VOLUME 9.5 fl (7.2-11.7); MONO # 0.7 K/uL (0.0-0.8); MONO % 12.1 % (0.0-10.0); NEUT # 2.4 K/uL (1.8-7.0); NEUT % 41.9 % (50.0-75.0); RED CELL DISTRIBUTION WIDTH 13.6 % (11.5-14.5); WHITE BLOOD COUNT 5.7 K/uL (4.8-10.8)
[2017-03-05 07:35] LABS: ALB/GLOB RATIO 0.7 (1.0-2.1); ALKALINE PHOSPHATASE 138 U/L (38-126); ALT/SGPT 44 U/L (9-52); AST/SGOT 50 U/L (14-36); BILIRUBIN,TOTAL 2.2 mg/dl (0.2-1.3); BLOOD UREA NITROGEN 11 mg/dl (7-17); CALCIUM 8.3 mg/dL (8.4-10.2); CARBON DIOXIDE 26 mmol/L (22-30); CHLORIDE 108 mmol/L (98-107); GFR AFRICAN-AMERICAN > 60; GLUCOSE,RANDOM 89 mg/dL (65-105); POTASSIUM 3.7 MMOL/L (3.6-5.0); SODIUM 140 mmol/l (132-148); TOTAL PROTEIN 6.1 G/DL (6.3-8.2)
[2017-03-05] MEDS: Omega-3-Acid Ethyl Esters 1 GM Cap PO SCH ×2 (09:47→18:27)
[2017-03-05] MEDS: Pantoprazole 40 mg EC Tab PO SCH (09:52)
[2017-03-05] MEDS: Sodium Chloride 0.45% 1,000 ML IV SCH (12:53)
--- NOTE | 2017-03-05 13:53 | CP.PCM.PN ---
Subjective - Date & Time of Evaluation Date of Evaluation: 03/05/17 Time of Evaluation: 09:00 - Subjective Subjective: seen on rounds awake alert responsive afebrile rx in progress Objective - Vital Signs/Intake and Output Vital Signs (last 24 hours): Temp Pulse Resp BP Pulse Ox 98.1 F 79 20 124/71 99 03/05/17 12:15 03/05/17 12:15 03/05/17 12:15 03/05/17 12:15 03/05/17 12:15 Intake and Output: 03/05/17 03/05/17 06:59 18:59 Intake Total 100 Output Total 300 Balance -200 - Medications Medications: Current Medications Acetaminophen (Tylenol 325mg Tab) 650 mg PO Q4H PRN PRN Reason: Pain, Mild (1-3) Acetaminophen (Tylenol 325mg Tab) 650 mg PO Q4H PRN PRN Reason: Temp/fever Aspirin (Aspirin Chewable) 81 mg PO DAILY [facility] Last Admin: 03/05/17 09:53 Dose: 81 mg Bisacodyl (Dulcolax) 10 mg [place] DAILY PRN PRN Reason: Constipation Diphenhydramine HCl (Benadryl) 25 mg PO Q6H PRN PRN Reason: Itching / Pruritus Donepezil HCl (Aricept) 5 mg PO HS [facility] Last Admin: 03/04/17 21:52 Dose: 5 mg Enoxaparin Sodium (Lovenox) 40 mg SC DAILY [facility] PRN Reason: Protocol Last Admin: 03/04/17 10:15 Dose: 40 mg Escitalopram Oxalate (Lexapro) 2.5 mg PO DAILY [facility] Last Admin: 03/05/17 09:47 Dose: 2.5 mg Ferrous Sulfate (Feosol) 325 mg PO DAILY [facility] Last Admin: 03/05/17 09:53 Dose: 325 mg Sodium Chloride (Sodium Chloride 0.45%) 1,000 mls @ 125 mls/hr IV .Q8H [facility] Last Admin: 03/05/17 12:53 Dose: Not Given Vancomycin HCl 1 gm/ Sodium (Chloride) 250 mls @ 250 mls/hr IVPB Q12H [facility] Last Admin: 03/04/17 21:58 Dose: Not Given Ibuprofen (Motrin Tab) 400 mg PO Q6H PRN PRN Reason: Pain, moderate (4-7) Lactulose (Enulose) 20 gm PO BID [facility] Last Admin: 03/05/17 09:53 Dose: 20 gm Levetiracetam (Keppra) 500 mg PO BID [facility] Last Admin: 03/05/17 09:52 Dose: 500 mg Linezolid (Zyvox) 600 mg PO Q12 [facility] Last Admin: 03/05/17 09:54 Dose: 600 mg Magnesium Hydroxide (Milk Of Magnesia) 30 ml PO HS PRN PRN Reason: Constipation Metoprolol Tartrate (Lopressor) 25 mg PO DAILY [facility] Last Admin: 03/05/17 09:47 Dose: 25 mg Nitrofurantoin Macrocrystals (Macrobid) 100 mg PO Q12 [facility] Last Admin: 03/05/17 09:52 Dose: 100 mg Tttae-0-Uspt Ethyl Esters (Lovaza) 1 gm PO BID [facility] Last Admin: 03/05/17 09:47 Dose: 1 gm Pantoprazole Sodium (Protonix Ec Tab) 40 mg PO DAILY [facility] Last Admin: 03/05/17 09:52 Dose: 40 mg - Labs Labs: 03/05/17 05:30 03/05/17 05:30 PT 12.5 SECONDS (9.6-11.2) H 03/03/17 14:19 INR 1.20 (0.92-1.08) H 03/03/17 14:19 APTT 27.8 SECONDS (23.3-32.5) 03/03/17 14:19 - Constitutional Appears: Non-toxic, Cachectic, Chronically Ill - Head Exam Head Exam: NORMOCEPHALIC - Eye Exam Eye Exam: PERRL. absent: Scleral icterus - ENT Exam ENT Exam: Mucous Membranes Dry - Neck Exam Neck Exam: absent: Lymphadenopathy - Respiratory Exam Respiratory Exam: Decreased Breath Sounds - Cardiovascular Exam Cardiovascular Exam: REGULAR RHYTHM, +S1, +S2 - GI/Abdominal Exam GI & Abdominal Exam: Distended, Soft. absent: Tenderness - Rectal Exam Rectal Exam: Deferred - Exam Exam: NORMAL INSPECTION - Extremities Exam Extremities Exam: absent: Pedal Edema - Back Exam Back Exam: absent: CVA tenderness (L), CVA tenderness (R) - Neurological Exam Neurological Exam: Alert, Altered, Awake Assessment and Plan (1) UTI (urinary tract infection) Status: Acute (2) Altered mental state Status: Acute (3) Encephalopathy acute Status: Acute (4) Alzheimer's dementia Status: Chronic
[2017-03-05] MEDS ORDERED: Lidocaine 1% Inj (20ml) ONE (15:57)
--- NOTE | 2017-03-05 16:31 | PCM.SURG1 ---
Surgeon's Initial Post Op Note - Surgeon's Notes Surgeon: Ross [employer] Consultant: None Type of Anesthesia: Local Pre-Operative Diagnosis: IV access for antibiotics Operative Findings: Patent but small right basilic vein. Post-Operative Diagnosis: IV access for antibiotics Operation Performed: Right basilic vein 37cm 4F SL PICC placed. Specimen/Specimens Removed: None Estimated Blood Loss: EBL {In ML}: 1 Date of Surgery/Procedure: 03/05/17 Time of Surgery/Procedure: 16:20
[2017-03-05] MEDS: Enoxaparin 40 mg Syringe SC SCH (18:26)
[2017-03-05] MEDS: Tmp-Smz 800 mg-160 mg DS Tab PO SCH (21:44)
[2017-03-06 07:02] LABS: HEMATOCRIT 32.7 % (34.0-47.0); MEAN CELL VOLUME 95.8 fl (81.0-99.0); MEAN CORPUSCULAR HEMOGLOBIN 33.3 pg (27.0-31.0); MEAN CORPUSCULAR HGB CONC 34.7 g/dL (33.0-37.0); RED CELL DISTRIBUTION WIDTH 13.6 % (11.5-14.5); WHITE BLOOD COUNT 4.5 K/uL (4.8-10.8)
[2017-03-06 07:22] LABS: ALB/GLOB RATIO 0.7 (1.0-2.1); ALKALINE PHOSPHATASE 124 U/L (38-126); ALT/SGPT 41 U/L (9-52); AST/SGOT 41 U/L (14-36); BILIRUBIN,TOTAL 1.9 mg/dl (0.2-1.3); BLOOD UREA NITROGEN 12 mg/dl (7-17); CALCIUM 8.1 mg/dL (8.4-10.2); CARBON DIOXIDE 26 mmol/L (22-30); CHLORIDE 106 mmol/L (98-107); GFR AFRICAN-AMERICAN > 60; GLUCOSE,RANDOM 80 mg/dL (65-105); POTASSIUM 3.7 MMOL/L (3.6-5.0); SODIUM 138 mmol/l (132-148); TOTAL PROTEIN 5.6 G/DL (6.3-8.2)
--- NOTE | 2017-03-06 09:09 | PN ---
DATE: 03/06/2017 The patient seen and examined. Interim events noted. Consults noted and appreciated. Interventiona l radiology and pulmonary consult and intervention noted and appreciated. The patient remains in pro gressive care unit on telemetry monitoring. The patient is awake, responsive, . He denies any specific complaints. No chest pain. No shortness of breath. PHYSICAL EXAMINATION: GENERAL: The patient is in no acute distress. VITAL SIGNS: Stable. HEART: S1, S2 normal, regular. LUNGS: Good bilateral air entry. ABDOMEN: Soft, nontender. EXTREMITIES: No calf swelling, no tenderness. No acute ischemia. CENTRAL NERVOUS SYSTEM: Essentially unchanged. DIAGNOSTIC DATA: Available diagnostic data reviewed. Telemetry monitoring does not reveal significa nt arrhythmias. Blood cultures are positive for staphylococcus in clusters, most likely contaminatio n. culture is positive for E. coli. PLAN: As ordered. Alfonso Brar MD cc: [id number] TT: 03/06/2017 09:08:26 Confirmation # [id number] Dictation # [id number] mario
[2017-03-06] MEDS: Tmp-Smz 800 mg-160 mg DS Tab PO SCH ×2 (09:55→21:06)
[2017-03-06] MEDS: Omega-3-Acid Ethyl Esters 1 GM Cap PO SCH (09:59)
[2017-03-06] MEDS: Enoxaparin 40 mg Syringe SC SCH (09:59)
[2017-03-06] MEDS: Pantoprazole 40 mg EC Tab PO SCH (10:00)
[2017-03-07 07:33] LABS: HEMATOCRIT 32.1 % (34.0-47.0); MEAN CELL VOLUME 96.2 fl (81.0-99.0); MEAN CORPUSCULAR HEMOGLOBIN 33.1 pg (27.0-31.0); MEAN CORPUSCULAR HGB CONC 34.4 g/dL (33.0-37.0); RED CELL DISTRIBUTION WIDTH 13.3 % (11.5-14.5); WHITE BLOOD COUNT 3.8 K/uL (4.8-10.8)
[2017-03-07 07:41] LABS: ALB/GLOB RATIO 0.7 (1.0-2.1); ALKALINE PHOSPHATASE 116 U/L (38-126); ALT/SGPT 38 U/L (9-52); AST/SGOT 37 U/L (14-36); BILIRUBIN,TOTAL 1.5 mg/dl (0.2-1.3); BLOOD UREA NITROGEN 12 mg/dl (7-17); CARBON DIOXIDE 25 mmol/L (22-30); CHLORIDE 108 mmol/L (98-107); GFR AFRICAN-AMERICAN > 60; GLUCOSE,RANDOM 76 mg/dL (65-105); POTASSIUM 4.1 MMOL/L (3.6-5.0); SODIUM 138 mmol/l (132-148); TOTAL PROTEIN 5.7 G/DL (6.3-8.2)
[2017-03-07] MEDS: Tmp-Smz 800 mg-160 mg DS Tab PO SCH ×2 (08:32→22:20)
[2017-03-07] MEDS: Enoxaparin 40 mg Syringe SC SCH ×2 (08:34→17:46)
[2017-03-07] MEDS: Omega-3-Acid Ethyl Esters 1 GM Cap PO SCH ×2 (08:34→17:45)
[2017-03-07] MEDS: Pantoprazole 40 mg EC Tab PO SCH (08:36)
--- NOTE | 2017-03-07 09:35 | PN ---
DATE: 03/07/2017 The patient seen and examined. Interim events noted. The patient remains in progressive care unit o n telemetry monitoring. The patient is awake, responsive poor. Conversant and verbal. Compla ins of occasional headache relieved with current pain medication. PHYSICAL EXAMINATION: GENERAL: The patient is in no acute distress. VITAL SIGNS: Stable. HEART: S1, S2 normal, regular. LUNGS: Good bilateral air exchange. ABDOMEN: Soft, nontender. EXTREMITIES: No calf swelling, no tenderness, no acute ischemia. CENTRAL NERVOUS SYSTEM: Essentially unchanged. DIAGNOSTIC DATA: Available reviewed. Telemetry monitoring does not reveal significant arrhythmias. Overall, patient's general medical condition is stable. PLAN: As ordered. Alfonso Brar MD cc: [id number] TT: 03/07/2017 09:34:48 Confirmation # [id number] Dictation # [id number] en
--- NOTE | 2017-03-07 14:07 | CP.PCM.PN ---
Subjective - Date & Time of Evaluation Date of Evaluation: 03/07/17 Time of Evaluation: 09:00 - Subjective Subjective: seen on rounds awake alert responsive afebrile rx in progress Objective - Vital Signs/Intake and Output Vital Signs (last 24 hours): Temp Pulse Resp BP Pulse Ox 98.3 F 64 20 152/78 H 100 03/07/17 11:56 03/07/17 11:56 03/07/17 11:56 03/07/17 11:56 03/07/17 11:56 Intake and Output: 03/07/17 03/07/17 06:59 18:59 Intake Total 200 Output Total 600 Balance -400 - Medications Medications: Current Medications Acetaminophen (Tylenol 325mg Tab) 650 mg PO Q4H PRN PRN Reason: Pain, Mild (1-3) Last Admin: 03/06/17 21:05 Dose: 650 mg Acetaminophen (Tylenol 325mg Tab) 650 mg PO Q4H PRN PRN Reason: Temp/fever Aspirin (Aspirin Chewable) 81 mg PO DAILY [facility] Last Admin: 03/07/17 08:31 Dose: 81 mg Bisacodyl (Dulcolax) 10 mg [place] DAILY PRN PRN Reason: Constipation Diphenhydramine HCl (Benadryl) 25 mg PO Q6H PRN PRN Reason: Itching / Pruritus Donepezil HCl (Aricept) 5 mg PO HS [facility] Last Admin: 03/06/17 21:06 Dose: 5 mg Escitalopram Oxalate (Lexapro) 2.5 mg PO DAILY [facility] Last Admin: 03/07/17 08:33 Dose: 2.5 mg Ferrous Sulfate (Feosol) 325 mg PO DAILY [facility] Last Admin: 03/07/17 08:32 Dose: 325 mg Ibuprofen (Motrin Tab) 400 mg PO Q6H PRN PRN Reason: Pain, moderate (4-7) Last Admin: 03/07/17 08:35 Dose: 400 mg Lactulose (Enulose) 20 gm PO BID [facility] Last Admin: 03/07/17 08:32 Dose: 20 gm Levetiracetam (Keppra) 500 mg PO BID [facility] Last Admin: 03/07/17 08:32 Dose: 500 mg Magnesium Hydroxide (Milk Of Magnesia) 30 ml PO HS PRN PRN Reason: Constipation Metoprolol Tartrate (Lopressor) 25 mg PO DAILY [facility] Last Admin: 03/07/17 08:33 Dose: 25 mg Nitrofurantoin Macrocrystals (Macrobid) 100 mg PO Q12 [facility] Last Admin: 03/07/17 08:35 Dose: 100 mg Wnlkt-9-Ritw Ethyl Esters (Lovaza) 1 gm PO BID [facility] Last Admin: 03/07/17 08:34 Dose: 1 gm Pantoprazole Sodium (Protonix Ec Tab) 40 mg PO DAILY [facility] Last Admin: 03/07/17 08:36 Dose: 40 mg Trimethoprim/Sulfamethoxazole (Bactrim Ds Tab) 1 tab PO Q12 [facility] Last Admin: 03/07/17 08:32 Dose: 1 tab - Labs Labs: 03/07/17 06:30 03/07/17 06:30 PT 12.5 SECONDS (9.6-11.2) H 03/03/17 14:19 INR 1.20 (0.92-1.08) H 03/03/17 14:19 APTT 27.8 SECONDS (23.3-32.5) 03/03/17 14:19 - Constitutional Appears: Non-toxic, Cachectic, Chronically Ill - Head Exam Head Exam: NORMOCEPHALIC - Eye Exam Eye Exam: PERRL. absent: Scleral icterus - ENT Exam ENT Exam: Mucous Membranes Dry - Neck Exam Neck Exam: absent: Lymphadenopathy - Respiratory Exam Respiratory Exam: Decreased Breath Sounds, Rhonchi - Cardiovascular Exam Cardiovascular Exam: REGULAR RHYTHM - GI/Abdominal Exam GI & Abdominal Exam: Distended, Soft. absent: Tenderness - Rectal Exam Rectal Exam: Deferred - Exam Exam: NORMAL INSPECTION - Extremities Exam Extremities Exam: absent: Pedal Edema - Back Exam Back Exam: absent: CVA tenderness (L), CVA tenderness (R) - Neurological Exam Neurological Exam: Alert, Awake, Oriented x3 Assessment and Plan (1) Bacteremia Status: Acute (2) Bacteremia Status: Acute (3) Altered mental state Status: Acute (4) Encephalopathy acute Status: Acute (5) Hypernatremia Status: Acute (6) UTI (urinary tract infection) Status: Acute (7) Alzheimer's dementia Status: Chronic (8) Hypertension Status: Chronic
[2017-03-08 06:24] LABS: HEMATOCRIT 31.4 % (34.0-47.0); MEAN CORPUSCULAR HEMOGLOBIN 32.9 pg (27.0-31.0); MEAN CORPUSCULAR HGB CONC 34.2 g/dL (33.0-37.0); RED CELL DISTRIBUTION WIDTH 13.5 % (11.5-14.5); WHITE BLOOD COUNT 3.6 K/uL (4.8-10.8)
[2017-03-08] MEDS: Tmp-Smz 800 mg-160 mg DS Tab PO SCH ×2 (08:28→21:06)
[2017-03-08] MEDS: Pantoprazole 40 mg EC Tab PO SCH (08:28)
[2017-03-08] MEDS: Omega-3-Acid Ethyl Esters 1 GM Cap PO SCH ×2 (08:28→18:38)
--- NOTE | 2017-03-08 09:52 | PN ---
DATE: 03/08/2017 The patient is seen and examined. Interim events noted. Consults noted, appreciated. Infectious di sease followup and interventions noted and appreciated. The patient remains in progressive care unit on telemetry monitoring. The patient is awake, responsive. Denies any specific complaint, although the patient is not able to provide informative history or review of systems. PHYSICAL EXAMINATION: GENERAL: The patient is in no acute distress. VITAL SIGNS: Stable. HEART: S1, S2 normal, regular. LUNGS: Good bilateral air exchange. ABDOMEN: Soft, nontender. EXTREMITIES: No calf swelling, no tenderness, no acute ischemia. CENTRAL NERVOUS SYSTEM: Essentially unchanged. DIAGNOSTIC DATA: Available diagnostic data reviewed. The patient had episodes of vaginal bleed yesterday and also had low platelets. Lovenox was placed o n hold. Currently there is no active bleeding. The patient is medically stable. PLAN: As ordered. Alfonso Brar MD cc: [id number] TT: 03/08/2017 09:51:44 Confirmation # [id number] Dictation # [id number]
[2017-03-08 10:02] LABS: CHLORIDE 107 mmol/L (98-107); POTASSIUM 4.3 MMOL/L (3.6-5.0); SODIUM 139 mmol/l (132-148)
[2017-03-08 10:05] LABS: BLOOD UREA NITROGEN 13 mg/dl (7-17); CARBON DIOXIDE 25 mmol/L (22-30); GFR AFRICAN-AMERICAN > 60
[2017-03-08 10:06] LABS: CALCIUM 8.2 mg/dL (8.4-10.2); GLUCOSE,RANDOM 73 mg/dL (65-105)
--- NOTE | 2017-03-08 17:31 | VASCULAR ---
Procedure: Ultrasound and fluoroscopically placed Right upper extremity PICC. Clinical indication: Long-term IV antibiotics. Technique: The relative risks and indications of the procedure were explained to the patient and written informed consent obtained. The patient was placed supine on the angiographic table and the right arm prepped and draped in the usual sterile fashion. A tourniquet was applied to the right axilla. 1% lidocaine was used to anesthetize the skin and soft tissues at the puncture site above the elbow. The right basilic vein was punctured under direct ultrasound guidance with a micropuncture set. A permanent image was stored. A 0.018 guidewire was advanced centrally and used to measure the length to the SVC/RA junction. A 4 Sudanese single-lumen PICC, size 37 cm, was advanced to the SVC/RA junction under fluoroscopic guidance. The catheter was flushed and secured. The patient tolerated the procedure well. Postprocedure chest image was obtained to ensure location of the catheter tip at the SVC right atrial junction. Impression: Ultrasound and fluoroscopically placed right upper extremity PICC. A 4 Sudanese single-lumen PICC, size 37 cm was advanced to the SVC/RA junction. PICC ready for use.
--- NOTE | 2017-03-09 08:56 | PQF GENQUE ---
Dr. Brar, Acute CVA ruled in or ruled out? If ruled in type if known? 03/04 Neuro consult: (1) Encephalopathy acute :Assessment and Plan: Based on the history and presentation, the patient may have either suffered from a new infarct, or has toxic-metabolic encephalopathy. An MRI of the brain is recommended and continue treatment for underlying cause, hydration with NS at 100 mL/hr, DVT Px, PT/OT/ST. Platelets are low, but would continue aspirin 81 mg for stroke prevention. Status: Acute Priority: High 03/05 DRAFT:Resident note: CVA (cerebral vascular accident) Assessment ;Plan: Acute on chronic is a possibility with patient having baseline LEFT hemiparesis and speech ?aphasia combined with alzheimer's challenging to discriminate more subtle changes. - Neurology Consult (Dr Serrato) appreciated: - MRI- PENDING - Aspirin 81mg, PO, Daily - Keppra 500mg, PO, This form is a permanent part of the medical record Clarification of your documentation is requested to better reflect the severity of illness and intensity of treatment of your patient. Indicators present [] Specify: [] [] Specify: [] [] Specify: [] [] Specify: [] Location in the medical record that reflects the above clinical findings: [] Treatment Provided: [] PHYSICIAN'S RESPONSE Based on your medical judgment of the clinical indicators outlined above please clarify the following: [] Practitioner response [] If unable to determine, please check the box, sign and date. Present On Admission (POA) Indicator: [] Present at the time of admission [] Not present at the time of admission [] Clinically Undetermined In responding to this query, please exercise your independent professional judgment. The fact that a question is asked does not imply that any particular answer is desired or expected. Thank you for your clarification on this documentation. If you have any questions please call. * Thank you, Alayna Nails RN BSN ext. #[phone] MTDD
[2017-03-09] MEDS: Tmp-Smz 800 mg-160 mg DS Tab PO SCH (09:09)
[2017-03-09] MEDS: Pantoprazole 40 mg EC Tab PO SCH (09:12)
[2017-03-09] MEDS: Omega-3-Acid Ethyl Esters 1 GM Cap PO SCH (09:12)
--- NOTE | 2017-03-09 09:28 | CP.PCM.PN ---
Subjective - Date & Time of Evaluation Date of Evaluation: 03/09/17 Time of Evaluation: 09:25 - Subjective Subjective: evaluated with attending. no overnight events. Tolerating PO. Making urine and BM. c/o headache. Denies chest pain, SOB, abd pain, new focal weakness. Objective - Vital Signs/Intake and Output Vital Signs (last 24 hours): Temp Pulse Resp BP Pulse Ox 97.9 F 90 20 135/72 98 03/09/17 08:05 03/09/17 09:10 03/09/17 08:05 03/09/17 09:10 03/09/17 08:05 Intake and Output: 03/09/17 03/09/17 06:59 18:59 Output Total 650 Balance -650 - Medications Medications: Current Medications Acetaminophen (Tylenol 325mg Tab) 650 mg PO Q4H PRN PRN Reason: Pain, Mild (1-3) Last Admin: 03/08/17 21:03 Dose: 650 mg Acetaminophen (Tylenol 325mg Tab) 650 mg PO Q4H PRN PRN Reason: Temp/fever Aspirin (Aspirin Chewable) 81 mg PO DAILY [facility] Last Admin: 03/09/17 09:09 Dose: 81 mg Bisacodyl (Dulcolax) 10 mg [place] DAILY PRN PRN Reason: Constipation Diphenhydramine HCl (Benadryl) 25 mg PO Q6H PRN PRN Reason: Itching / Pruritus Donepezil HCl (Aricept) 5 mg PO HS [facility] Last Admin: 03/08/17 21:07 Dose: 5 mg Escitalopram Oxalate (Lexapro) 2.5 mg PO DAILY [facility] Last Admin: 03/09/17 09:11 Dose: 2.5 mg Ferrous Sulfate (Feosol) 325 mg PO DAILY [facility] Last Admin: 03/09/17 09:10 Dose: 325 mg Ibuprofen (Motrin Tab) 400 mg PO Q6H PRN PRN Reason: Pain, moderate (4-7) Last Admin: 03/08/17 15:00 Dose: 400 mg Lactulose (Enulose) 20 gm PO BID [facility] Last Admin: 03/09/17 09:10 Dose: 20 gm Levetiracetam (Keppra) 500 mg PO BID [facility] Last Admin: 03/09/17 09:10 Dose: 500 mg Magnesium Hydroxide (Milk Of Magnesia) 30 ml PO HS PRN PRN Reason: Constipation Metoprolol Tartrate (Lopressor) 25 mg PO DAILY [facility] Last Admin: 03/09/17 09:10 Dose: 25 mg Nitrofurantoin Macrocrystals (Macrobid) 100 mg PO Q12 [facility] Stop: 03/09/17 11:59 Last Admin: 03/09/17 09:09 Dose: 100 mg Exugb-5-Xmle Ethyl Esters (Lovaza) 1 gm PO BID [facility] Last Admin: 03/09/17 09:12 Dose: 1 gm Pantoprazole Sodium (Protonix Ec Tab) 40 mg PO DAILY [facility] Last Admin: 03/09/17 09:12 Dose: 40 mg Trimethoprim/Sulfamethoxazole (Bactrim Ds Tab) 1 tab PO Q12 [facility] Last Admin: 03/09/17 09:09 Dose: 1 tab - Labs Labs: 03/08/17 05:50 03/08/17 05:50 PT 12.5 SECONDS (9.6-11.2) H 03/03/17 14:19 INR 1.20 (0.92-1.08) H 03/03/17 14:19 APTT 27.8 SECONDS (23.3-32.5) 03/03/17 14:19 - Constitutional Appears: Non-toxic, No Acute Distress - Head Exam Head Exam: NORMAL INSPECTION - Eye Exam Eye Exam: Normal appearance - Neck Exam Neck Exam: Normal Inspection - Respiratory Exam Respiratory Exam: Clear to Ausculation Bilateral - Cardiovascular Exam Cardiovascular Exam: REGULAR RHYTHM - GI/Abdominal Exam GI & Abdominal Exam: Soft, Normal Bowel Sounds - Extremities Exam Extremities Exam: absent: Pedal Edema - Neurological Exam Neurological Exam: Alert - Skin Skin Exam: Dry, Warm Assessment and Plan (1) Altered mental status Assessment & Plan: likely related to enecephalopathy and becteremia Blood cx - S aureus, coagulase neg Staph lactulose 20mg BID hold benadryl ID and neuro on board, appreciate input Status: Acute (2) Encephalopathy acute Assessment & Plan: lactulose 20mg BID, can titrate up to TID for 3BM daily Status: Acute (3) UTI (urinary tract infection) Assessment & Plan: Bactrim ID on board, appreciate input Status: Acute (4) Alzheimer's dementia Assessment & Plan: donepizil Status: Chronic (5) Hypertension Assessment & Plan: metoprolol Status: Chronic (6) Cirrhosis of liver Assessment & Plan: lactulose Status: Acute (7) Anemia of chronic illness Assessment & Plan: chronic d/t cirrhosis H/O on board, appreciate input Status: Chronic (8) Thrombocytopenia Assessment & Plan: chronic d/t cirrhosis H/O on board, appreciate input Status: Chronic (9) DVT prophylaxis Assessment & Plan: held lovenox d/t vaginal bleeding yesterday. likely restart tomorrow Status: Acute - Assessment and Plan (Free Text) Plan: Dispo: [facility] v. MISSY
--- NOTE | 2017-03-09 11:22 | CP.PCM.DIS ---
Provider - Provider Date of Admission: 03/03/17 12:04 Attending physician: Alfonso Brar MD Time Spent in preparation of Discharge (in minutes): 30 Diagnosis - Discharge Diagnosis (1) Altered mental status Status: Acute (2) Encephalopathy acute Status: Acute Priority: High (3) UTI (urinary tract infection) Status: Acute (4) Alzheimer's dementia Status: Chronic (5) Hypertension Status: Chronic (6) Cirrhosis of liver Status: Acute (7) Anemia of chronic illness Status: Chronic (8) Thrombocytopenia Status: Chronic Priority: Low (9) DVT prophylaxis Status: Acute Hospital Course - Lab Results Lab Results: Micro Results 03/05/17 05:30 Blood-Venous Blood Culture - Preliminary NO GROWTH AFTER 4 DAYS Most Recent Lab Values WBC 3.6 K/uL (4.8-10.8) L 03/08/17 05:50 RBC 3.28 Mil/uL (3.80-5.20) L 03/08/17 05:50 Hgb 10.8 g/dL (12.0-16.0) L 03/08/17 05:50 Hct 31.4 % (34.0-47.0) L 03/08/17 05:50 MCV 96.0 fl (81.0-99.0) 03/08/17 05:50 MCH 32.9 pg (27.0-31.0) H 03/08/17 05:50 MCHC 34.2 g/dL (33.0-37.0) 03/08/17 05:50 RDW 13.5 % (11.5-14.5) 03/08/17 05:50 Plt Count 78 K/uL (130-400) L 03/08/17 05:50 MPV 9.5 fl (7.2-11.7) 03/05/17 05:30 Neut % (Auto) 41.9 % (50.0-75.0) L 03/05/17 05:30 Lymph % (Auto) 39.8 % (20.0-40.0) 03/05/17 05:30 [place] % (Auto) 12.1 % (0.0-10.0) H 03/05/17 05:30 Eos % (Auto) 5.5 % (0.0-4.0) H 03/05/17 05:30 Baso % (Auto) 0.7 % (0.0-2.0) 03/05/17 05:30 Neut # 2.4 K/uL (1.8-7.0) 03/05/17 05:30 Lymph # 2.3 K/uL (1.0-4.3) 03/05/17 05:30 [place] # 0.7 K/uL (0.0-0.8) 03/05/17 05:30 Eos # 0.3 K/uL (0.0-0.7) 03/05/17 05:30 Baso # 0.0 K/uL (0.0-0.2) 03/05/17 05:30 PT 12.5 SECONDS (9.6-11.2) H 03/03/17 14:19 INR 1.20 (0.92-1.08) H 03/03/17 14:19 APTT 27.8 SECONDS (23.3-32.5) 03/03/17 14:19 pCO2 32 mm/Hg (35-45) L 03/03/17 11:23 pO2 105 mm/Hg (80-100) H 03/03/17 11:23 HCO3 24.7 mmol/L (21-28) 03/03/17 11:23 ABG pH 7.46 (7.35-7.45) H 03/03/17 11:23 ABG Total CO2 23.8 mmol/L (22-28) 03/03/17 11:23 ABG O2 Saturation 100.4 % (95-98) H 03/03/17 11:23 ABG Base Excess -0.3 mmol/L (-2.0-3.0) 03/03/17 11:23 Fabio Test Yes 03/03/17 11:23 ABG Potassium 3.8 mmol/L (3.6-5.2) 03/03/17 11:23 A-a O2 Difference 5.0 mm/Hg 03/03/17 11:23 Sodium 143.0 mmol/L (132-148) 03/03/17 11:23 Chloride 116.0 mmol/L (98-107) H 03/03/17 11:23 Glucose 99 mg/dL (65-105) 03/03/17 11:23 Lactate 1.4 mmol/L (0.7-2.1) 03/03/17 11:23 FiO2 21.0 % 03/03/17 11:23 Sodium 139 mmol/l (132-148) 03/08/17 05:50 Potassium 4.3 MMOL/L (3.6-5.0) 03/08/17 05:50 Chloride 107 mmol/L (98-107) 03/08/17 05:50 Carbon Dioxide 25 mmol/L (22-30) 03/08/17 05:50 Anion Gap 11 (10-20) 03/08/17 05:50 BUN 13 mg/dl (7-17) 03/08/17 05:50 Creatinine 0.6 mg/dL (0.7-1.2) L 03/08/17 05:50 Est GFR ( Amer) > 60 03/08/17 05:50 Est GFR (Non-Af Amer) > 60 03/08/17 05:50 POC Glucose (mg/dL) 103 mg/dL (65-110) 03/03/17 10:15 Random Glucose 73 mg/dL (65-105) 03/08/17 05:50 Calcium 8.2 mg/dL (8.4-10.2) L 03/08/17 05:50 Total Bilirubin 1.5 mg/dl (0.2-1.3) H 03/07/17 06:30 AST 37 U/L (14-36) H 03/07/17 06:30 ALT 38 U/L (9-52) 03/07/17 06:30 Alkaline Phosphatase 116 U/L (38-126) 03/07/17 06:30 Ammonia 85 umo/L (11-51) H 03/06/17 05:00 Troponin I 0.0140 ng/mL (0.00-0.120) 03/03/17 10:39 Total Protein 5.7 G/DL (6.3-8.2) L 03/07/17 06:30 Albumin 2.4 g/dL (3.5-5.0) L 03/07/17 06:30 Globulin 3.4 gm/dL (2.2-3.9) 03/07/17 06:30 Albumin/Globulin Ratio 0.7 (1.0-2.1) L 03/07/17 06:30 Triglycerides 60 mg/DL (0-149) 03/04/17 04:50 Cholesterol 116 mg/dL (0-199) 03/04/17 04:50 LDL Cholesterol Direct 54 mg/dL (0-129) 03/04/17 04:50 HDL Cholesterol 35 MG/DL (30-70) 03/04/17 04:50 Procalcitonin < 0.05 NG/ML (0.19-0.49) L 03/05/17 05:30 TSH 3rd Generation 2.10 mIU/ML (0.46-4.68) 03/05/17 05:30 Arterial Blood Potassium 3.8 mmol/L (3.6-5.2) 03/03/17 11:23 Urine Color Light yellow (YELLOW) 03/03/17 11:00 Urine Clarity Slight-cloudy (Clear) 03/03/17 11:00 Urine pH 7.5 (5.0-8.0) 03/03/17 11:00 Ur Specific [place] 1.015 (1.003-1.030) 03/03/17 11:00 Urine Protein Negative mg/dL (NEGATIVE) 03/03/17 11:00 Urine Glucose (UA) Negative mg/dL (Normal) 03/03/17 11:00 Urine Ketones Negative mg/dL (NEGATIVE) 03/03/17 11:00 Urine Blood Negative (NEGATIVE) 03/03/17 11:00 Urine Nitrate Positive (NEGATIVE) H 03/03/17 11:00 Urine Bilirubin Negative (NEGATIVE) 03/03/17 11:00 Urine Urobilinogen 1.0 mg/dL (0.2-1.0) 03/03/17 11:00 Ur Leukocyte Esterase Small Rishabh/uL (Negative) 03/03/17 11:00 Urine RBC (Auto) 3 /hpf (0-3) 03/03/17 11:00 Urine Microscopic WBC 10 /hpf (0-5) H 03/03/17 11:00 Ur Squamous Epith Cells 8 /hpf (0-5) H 03/03/17 11:00 Urine Bacteria Mod (<OCC) H 03/03/17 11:00 - Hospital Course Hospital Course: 77yo F with PMHx CVA (residual LEFT hemiparesis), Anemia, Cirrhosis, CAD, Alzheimer's Dementia, HTN admitted for AMS. CT head found no acute pathology. Neuro Dr. Serrato c/s and thought to have encephalopathy or CVA deficits. 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 Pt found to have UTI treated with and sensitive to Bactrim. ID Dr. Jeter c/s and agreed with continuing Bactrim upon d/c. Pt returned to baseline mentation per attending and likely related to UTI. Bacteremia was initially found but thought to be a false finding as the blood cx was likely contaminated and pt didn't fit sepsis criteria and lactate was not elevated. Discharge Exam - Head Exam Head Exam: NORMAL INSPECTION Discharge Plan - Discharge Medications Prescriptions: Sulfamethoxazole/Trimethoprim [Bactrim DS Tab] 1 tab PO Q12 #8 tab - Follow Up Plan Condition: GUARDED Disposition: TRANSF TO SNF Instructions: Urinary Tract Infection in Women (DC), Urinary Tract Infection in Men (DC), Sepsis (DC), Sepsis (GEN), Dysuria (GEN), Hypertension (DC), Hypertension (GEN), Altered Mental Status (GEN) Additional Instructions: NeedsTotal care, fall precaution , feeder. Puree w/ thin liquids. Referrals: Alfonso Brar MD [Staff Provider] -
[2017-03-09 16:03] VITALS: BP 108/58; PULSE 64; RESP 20; TEMP 97.6; O2SAT 99
--- NOTE | 2017-03-10 07:43 | PQF GENQUE ---
Dr. Brar, Etiology of Bacteremia? if known OR: Other explanation of clinical finding OR: Unable to determine H and P: EMS from [place] for acute change in mental status over 10 hours. Glucose- 92, afebrile, no tachycardia, no tachypnea, significant hypertension, no signs of sepsis. 03/04: ID note: brought in by EMS from [place] for acute change in mental status over 10 hours. Glucose- 92, afebrile, no tachycardia, no tachypnea, significant hypertension, no signs of sepsis.; Assessment: gram + cocci on blood c/s contaminant? pt is toxic will cover with Vanco 03/05: Resident ISigned note: ) UTI (urinary tract infection) Urine culture on admission positive. - UCx: e. coli sensitive to Macrobid 100mg, PO, Q12H for 5 days ;Status: Acute 03/05 ID note: addendum + blood c/s likely a contaminant 03/06 Attending note in draft; Blood cultures are positive for staphylococcus in clusters, most likely contamination. culture is positive for E. coli. 03/07: ID note; Bacteremia: acute 03/09 Resident I signed note; (1) Altered mental status Assessment Plan: likely related to enecephalopathy and bacteremia Blood cx - S aureus, coagulase neg Staph lactulose 20mg BID WBC:4.2->5.2->5.7->4.5->3.8->3.6 03/03 :ABG: lactate:1.4 03/05: Procalcitonin:<0.05 Blood culture: 03/03 @10:10: coag neg staph; result: gram positive cocci in clusters Blood culture: 03/05@10:40: negative This form is a permanent part of the medical record Clarification of your documentation is requested to better reflect the severity of illness and intensity of treatment of your patient. Indicators present [] Specify: [] [] Specify: [] [] Specify: [] [] Specify: [] Location in the medical record that reflects the above clinical findings: [] Treatment Provided: [] PHYSICIAN'S RESPONSE Based on your medical judgment of the clinical indicators outlined above please clarify the following: [] Practitioner response [] If unable to determine, please check the box, sign and date. Present On Admission (POA) Indicator: [] Present at the time of admission [] Not present at the time of admission [] Clinically Undetermined In responding to this query, please exercise your independent professional judgment. The fact that a question is asked does not imply that any particular answer is desired or expected. Thank you for your clarification on this documentation. If you have any questions please call. * Thank you, Alayna Nails RN BSN ext. #[phone] MTDD
== END 2017-03-09 16:15 | DRG 442 ==
LOC: H.ER 10:04 → H.ERHOLD 12:04 → H.TEL 15:58
PROVIDERS: ADMIT Internal Medicine; ATTEND Internal Medicine
PROC: 02HV33Z Insertion of Infusion Device into Superior Vena Cava, Percutaneous Approach (ICD-10-PCS; principal; 2017-03-05)
PROC: B518ZZA Fluoroscopy of Superior Vena Cava, Guidance (ICD-10-PCS; 2017-03-05)
PROC: 3E04329 Introduction of Other Anti-infective into Central Vein, Percutaneous Approach (ICD-10-PCS; 2017-03-05)
DX: K72.00 Acute and subacute hepatic failure without coma (principal); N39.0 Urinary tract infection, site not specified; E87.0 Hyperosmolality and hypernatremia; D68.4 Acquired coagulation factor deficiency; I69.354 Hemiplegia and hemiparesis following cerebral infarction affecting left non-dominant side; D69.59 Other secondary thrombocytopenia; K74.60 Unspecified cirrhosis of liver; G30.9 Alzheimer's disease, unspecified; F02.80 Dementia in other diseases classified elsewhere, unspecified severity, without behavioral disturbance, psychotic disturbance, mood disturbance, and anxiety; B96.20 Unspecified Escherichia coli [E. coli] as the cause of diseases classified elsewhere; I69.320 Aphasia following cerebral infarction; D63.8 Anemia in other chronic diseases classified elsewhere; I25.10 Atherosclerotic heart disease of native coronary artery without angina pectoris; I10 Essential (primary) hypertension; M81.0 Age-related osteoporosis without current pathological fracture; K21.9 Gastro-esophageal reflux disease without esophagitis; G89.29 Other chronic pain; N93.9 Abnormal uterine and vaginal bleeding, unspecified; F41.9 Anxiety disorder, unspecified; F32.9 Major depressive disorder, single episode, unspecified; Z88.0 Allergy status to penicillin; Z88.3 Allergy status to other anti-infective agents; Z91.041 Radiographic dye allergy status; Z87.01 Personal history of pneumonia (recurrent)